=== PATIENT | female | born 1970 | race Caucasian/White ===

== ENCOUNTER → 2020-11-05 | Outpatient (CLI) | payer OTHER, MEDICAID ==
[~2020-11-05] MED LIST: ASPIRIN 325MG325 MG PO; ASPIRIN CHEWABL81 MG PO; ATORVASTATIN CA20 MG PO; CYCLOBENZAPRINE10 MG PO; GLIMEPIRIDE4 MG PO; HYDROCODON-ACE1 EAC6 PO; ISOSORBIDE MONO60 MG PO; LORADAMED10 MG PO; LOSARTAN-HCTZ1 EAC1 PO; METFORMIN HCL1000 MG PO; METOPROLOL TART25 MG PO; MONTELUKAST SOD10 MG PO; NAPROXEN500 MG PO; NOVOLIN N100 UNIT/1 SC; NOVOLIN N100 UNIT/2 SQ; NOVOLOG FL100 UNIT/1 SC; OMEPRAZOLE20 MG PO; PROGESTERONE200 MG PO; VITAMIN D3125 MCG PO
[2020-11-05 11:05] LABS: HEMOGLOBIN 11.6 gm/dl (12.3-15.3); RED BLOOD COUNT 4.26 M/UL (4.00-5.10); WHITE BLOOD COUNT 7.6 K/UL (4.5-11.0)
[2020-11-05 11:23] LABS: BUN/CREATININE RATIO 20 (0-10)
== END ==
LOC: EDSTATUS 10:00 → OPSV2 10:00
PROVIDERS: Orthopaedic Surgery
DX: Z01.818 Encounter for other preprocedural examination (principal); M17.11 Unilateral primary osteoarthritis, right knee
CPT/HCPCS: 36415; 71046; 80048; 85025; 87081; 93005

== ENCOUNTER → 2020-11-17 | Outpatient (CLI) | payer OTHER, MEDICAID ==
[2020-11-17 14:02] LABS: BUN/CREATININE RATIO 16 (0-10)
== END ==
LOC: LAB 12:57
PROVIDERS: Orthopaedic Surgery
DX: Z01.812 Encounter for preprocedural laboratory examination (principal); E11.9 Type 2 diabetes mellitus without complications; I10 Essential (primary) hypertension; Z96.651 Presence of right artificial knee joint
CPT/HCPCS: 36415; 80048; 86850; 86900; 86901

== ENCOUNTER 2020-11-18 07:29 | Day surgery (SDC) | payer OTHER ==
[~2020-11-18] VITALS: Ht 182.9 cm; Wt 160.6 kg
[~2020-11-18 07:29] MED LIST changes: -ASPIRIN 325MG325 MG PO; -ASPIRIN CHEWABL81 MG PO; -ATORVASTATIN CA20 MG PO; -CYCLOBENZAPRINE10 MG PO; -GLIMEPIRIDE4 MG PO; -HYDROCODON-ACE1 EAC6 PO; -ISOSORBIDE MONO60 MG PO; -LORADAMED10 MG PO; -LOSARTAN-HCTZ1 EAC1 PO; -METFORMIN HCL1000 MG PO; -MONTELUKAST SOD10 MG PO; -NAPROXEN500 MG PO; -NOVOLIN N100 UNIT/1 SC; -NOVOLOG FL100 UNIT/1 SC; -OMEPRAZOLE20 MG PO; -PROGESTERONE200 MG PO; -VITAMIN D3125 MCG PO
[2020-11-18] MEDS ORDERED: PROGESTERONE200 MG PO (08:27)
[2020-11-18] MEDS ORDERED: NOVOLIN N100 UNIT/1 SC ×2 (12:07→12:09)
[2020-11-18] MEDS ORDERED: NOVOLOG FL100 UNIT/1 SC (12:15)
[2020-11-18] MEDS ORDERED: OMEPRAZOLE20 MG PO (12:18)
[2020-11-18] MEDS ORDERED: LORADAMED10 MG PO (12:19)
[2020-11-18] MEDS ORDERED: ASPIRIN CHEWABL81 MG PO (12:20)
[2020-11-18] MEDS ORDERED: VITAMIN D3125 MCG PO (12:21)
[2020-11-18] MEDS ORDERED: CYCLOBENZAPRINE10 MG PO (12:22)
[2020-11-18] MEDS ORDERED: GLIMEPIRIDE4 MG PO (12:23)
[2020-11-18] MEDS ORDERED: ISOSORBIDE MONO60 MG PO (12:24)
[2020-11-18] MEDS ORDERED: LOSARTAN-HCTZ1 EAC1 PO (12:25)
[2020-11-18] MEDS ORDERED: METFORMIN HCL1000 MG PO (12:26)
[2020-11-18] MEDS ORDERED: NAPROXEN500 MG PO (12:27)
[2020-11-18] MEDS ORDERED: MONTELUKAST SOD10 MG PO (12:27)
[2020-11-18] MEDS ORDERED: ATORVASTATIN CA20 MG PO (12:28)
[2020-11-18 13:58] LABS: BUN/CREATININE RATIO 21 (0-10)
--- NOTE | 2020-11-18 16:15 | NUR ---
contacted dr. esquivel r/t patient regular diet, progesterone med and vit d and stated to leave the regular diet and that above medication can be left out. even though patient stated vit d was 5000 and not 50,000. relay this message to the pharmacist and acknowledged.
[2020-11-19 05:50] LABS: HEMOGLOBIN 10.2 gm/dl (12.3-15.3); RED BLOOD COUNT 3.77 M/UL (4.00-5.10); WHITE BLOOD COUNT 13.6 K/UL (4.5-11.0)
[2020-11-19 06:08] LABS: BUN/CREATININE RATIO 21 (0-10)
[2020-11-19] MEDS ORDERED: ASPIRIN 325MG325 MG PO (09:25)
[2020-11-19] MEDS ORDERED: HYDROCODON-ACE1 EAC6 PO (12:37)
== END 2020-11-19 14:28 | disposition home or self-care (01) ==
LOC: OR 07:29 → EDSTATUS 14:30 → M/S 14:36 → OR 11-19 14:28
PROVIDERS: Orthopaedic Surgery; Physician Assistant
DX: M17.11 Unilateral primary osteoarthritis, right knee (principal); G89.18 Other acute postprocedural pain; I10 Essential (primary) hypertension; E78.5 Hyperlipidemia, unspecified; J44.9 Chronic obstructive pulmonary disease, unspecified; K21.9 Gastro-esophageal reflux disease without esophagitis; E11.9 Type 2 diabetes mellitus without complications; G47.33 Obstructive sleep apnea (adult) (pediatric); M54.9 Dorsalgia, unspecified; G89.29 Other chronic pain; F32.9 Major depressive disorder, single episode, unspecified; M19.90 Unspecified osteoarthritis, unspecified site; Z99.89 Dependence on other enabling machines and devices; Z88.8 Allergy status to other drugs, medicaments and biological substances; Z79.899 Other long term (current) drug therapy
CPT/HCPCS: 36415; 73560; 76000; 80048; 82962; 85027; 97116-GP-CQ; 97161; 97166; 97535; C1776; J0171; J0690; J1100; J1170; J2001; J2250; J2405; J2550; J2704; J2795; J3010; J7030; J7120

== ENCOUNTER → 2021-06-15 | Outpatient (CLI) | payer OTHER, SELFPAY ==
[~2021-06-15] MED LIST changes: +ASPIRIN 325MG325 MG PO; +ASPIRIN CHEWABL81 MG PO; +ATORVASTATIN CA20 MG PO; +CYCLOBENZAPRINE10 MG PO; +GLIMEPIRIDE4 MG PO; +HYDROCODON-ACE1 EAC6 PO; +ISOSORBIDE MONO60 MG PO; +LASIX20 MG PO; +LORADAMED10 MG PO; +LORATADINE10 MG PO; +LOSARTAN-HCTZ1 EAC1 PO; +LOW DOSE ASPIRI81 MG PO; +METFORMIN HCL1000 MG PO; +MONTELUKAST SOD10 MG PO; +NAPROXEN500 MG PO; +NOVOLIN N100 UNIT/1 SC; +NOVOLOG FL100 UNIT/1 SC; +OMEPRAZOLE20 MG PO; +PROGESTERONE200 MG PO; +VITAMIN D3125 MCG PO
[2021-06-15 12:15] LABS: HEMOGLOBIN 10.6 gm/dl (12.3-15.3); RED BLOOD COUNT 3.88 M/UL (4.00-5.10)
[2021-06-15 13:06] LABS: BUN/CREATININE RATIO 15 (0-10)
== END ==
LOC: OPSV2 11:26 → EDSTATUS 11:30 → OPSV2 11:30
PROVIDERS: Orthopaedic Surgery
DX: Z01.818 Encounter for other preprocedural examination (principal); M17.12 Unilateral primary osteoarthritis, left knee
CPT/HCPCS: 36415; 71046; 80048; 83036; 85025; 93005

== ENCOUNTER → 2021-06-29 | Outpatient (CLI) | payer OTHER ==
[~2021-06-29] MED LIST changes: +HYDROCODON-ACE1 EAC2 PO; +VAZALORE325 MG PO
[2021-06-29 15:54] LABS: BUN/CREATININE RATIO 17 (0-10)
== END ==
LOC: LAB 10:01
PROVIDERS: Orthopaedic Surgery
DX: Z01.812 Encounter for preprocedural laboratory examination (principal)
CPT/HCPCS: 36415; 80048; 86850; 86900; 86901

== ENCOUNTER 2021-06-30 05:40 | Day surgery (SDC) | payer OTHER ==
[~2021-06-30] VITALS: Ht 182.9 cm; Wt 172.4 kg
[~2021-06-30 05:40] MED LIST changes: -HYDROCODON-ACE1 EAC2 PO; -VAZALORE325 MG PO
[2021-07-01 06:48] LABS: HEMOGLOBIN 10.8 gm/dl (12.3-15.3); RED BLOOD COUNT 3.89 M/UL (4.00-5.10); WHITE BLOOD COUNT 8.6 K/UL (4.5-11.0)
[2021-07-01] MEDS ORDERED: HYDROCODON-ACE1 EAC2 PO (07:07)
[2021-07-01] MEDS ORDERED: VAZALORE325 MG PO (07:08)
[2021-07-01 07:28] LABS: BUN/CREATININE RATIO 17 (0-10)
== END 2021-07-01 11:14 | disposition home or self-care (01) ==
LOC: OR 05:40 → M/S 05:40 → EDSTATUS 11:15 → OR 11:15 → M/S 17:06 → OR 07-01 11:14
PROVIDERS: Internal Medicine
DX: M17.12 Unilateral primary osteoarthritis, left knee (principal); M25.762 Osteophyte, left knee; S83.012A Lateral subluxation of left patella, initial encounter; M79.4 Hypertrophy of (infrapatellar) fat pad; M24.562 Contracture, left knee; E11.9 Type 2 diabetes mellitus without complications; I10 Essential (primary) hypertension; E78.5 Hyperlipidemia, unspecified; R79.89 Other specified abnormal findings of blood chemistry; J44.9 Chronic obstructive pulmonary disease, unspecified; J45.909 Unspecified asthma, uncomplicated; K21.9 Gastro-esophageal reflux disease without esophagitis; Z79.82 Long term (current) use of aspirin; Z86.16 Personal history of COVID-19; Z90.49 Acquired absence of other specified parts of digestive tract; Z90.721 Acquired absence of ovaries, unilateral; Z96.651 Presence of right artificial knee joint; Z88.9 Allergy status to unspecified drugs, medicaments and biological substances; Z20.822 Contact with and (suspected) exposure to COVID-19; X58.XXXA Exposure to other specified factors, initial encounter; Y92.9 Unspecified place or not applicable
CPT/HCPCS: 73560; 76000; 80053; 82962; 83735; 84703; 85027; 97110; 97116; 97116-GP-CQ; 97162; 97165; 97530-GP-CQ; 97535; C1776; J0690; J1100; J1170; J1885; J2001; J2250; J2405; J2704; J2795; J3010; J3370; J7030; J7120